=== PATIENT | male | born 2000 | race African-American/Black ===

== ENCOUNTER 2020-10-22 03:43 | Emergency (ER) | payer MEDICAID ==
[~2020-10-22] VITALS: Ht 175.3 cm; Wt 60.0 kg
[2020-10-22 05:00] LABS: BASOPHILS % 0.5 % (0.0-2.0); EOSINOPHILS % 0.1 % (0.0-5.0); HEMATOCRIT. 50.2 % (42.0-52.0); HEMOGLOBIN. 17.4 g/dL (14.0-18.0); LYMPHOCYTES % 24.2 % (20.0-50.0); MEAN CORPUSCULAR HEMOGLOBIN 33.6 pg (28.0-32.0); MEAN CORPUSCULAR VOLUME 97.1 fL (80.0-94.0); MEAN PLATELET VOLUME 9.2 fl (7.4-10.4); MONOCYTES % 13.2 % (2.0-8.0); PLATELET 386 x1000/uL (130-400); RED BLOOD CELL COUNT 5.17 mill/uL (4.7-6.1); RED CELL DISTRIBUTION WIDTH 13.2 % (11.6-14.6)
[2020-10-22 05:07] LABS: CHLORIDE 101 mEq/L (98-107)
[2020-10-22] MEDS ORDERED: SODIUM CHLORIDE 0.9% 1,000 ML IV ONE (05:30)
[2020-10-22] MEDS ORDERED: POTASSIUM CHLORIDE 20MEQ TABLET SR PO ONE (05:30)
[2020-10-22] MEDS ORDERED: KCL 20MEQ/100ML PREMIX 100 ML IV ONE (05:30)
[2020-10-22 05:36] LABS: CLARITY URINE CLEAR (CLEAR); COLOR URINE ORANGE (YELLOW); KETONES URINE 2+ (NEGATIVE); LEUKOCYTE ESTERASE URINE 1+ (NEGATIVE); NITRITE URINE NEGATIVE (NEGATIVE); OCCULT BLOOD URINE NEGATIVE (NEGATIVE); PROTEIN URINE 2+ (NEGATIVE); SPECIFIC GRAVITY URINE 1.036 (1.005-1.030)
[2020-10-22] MEDS ORDERED: ONDANSETRON HCL 4MG/2ML INJ IV ONE (05:45)
[2020-10-22 07:40] VITALS: BP 113/72
== END 2020-10-22 11:30 | disposition left against medical advice (07) ==
LOC: ER 03:43 → CANBEDREQ 11:15 → ER 11:30
DX: K59.00 Constipation, unspecified (principal); E87.6 Hypokalemia
CPT/HCPCS: 36415; 74018; 80053; 81003; 83690; 85025; 93005; 96365; 96366; 96375; 99285; J2405; J3480; J7030; Z7610; J7040

== ENCOUNTER 2021-01-02 13:53 | Emergency (ER) | payer SELFPAY ==
[~2021-01-02] VITALS: Ht 172.7 cm; Wt 75.0 kg
[2021-01-02] MEDS ORDERED: ONDANSETRON HCL 4MG/2ML INJ IV STA (15:38)
[2021-01-02] MEDS ORDERED: KETOROLAC 30MG/ML VIAL IV STA (15:38)
[2021-01-02] MEDS ORDERED: SODIUM CHLORIDE 0.9% 1,000 ML IV ONE (15:45)
[2021-01-02 15:52] LABS: CLARITY URINE CLEAR (CLEAR); COLOR URINE DARK YELLOW (YELLOW); KETONES URINE 4+ (NEGATIVE); LEUKOCYTE ESTERASE URINE TRACE (NEGATIVE); NITRITE URINE NEGATIVE (NEGATIVE); OCCULT BLOOD URINE NEGATIVE (NEGATIVE); PROTEIN URINE 3+ (NEGATIVE); SPECIFIC GRAVITY URINE 1.038 (1.005-1.030)
[2021-01-02 16:07] VITALS: BP 155/82
[2021-01-02 16:12] LABS: *AMPHETAMINES SCREEN URINE NEGATIVE (NEGATIVE); *BARBITURATES SCREEN URINE NEGATIVE (NEGATIVE); *BENZODIAZEPINES SCREEN URINE NEGATIVE (NEGATIVE); *COCAINE SCREEN URINE PRESUMTIVE POSITIVE (NEGATIVE); METHADONE URINE SCREEN NEGATIVE (NEGATIVE); OPIATES URINE SCREEN NEGATIVE (NEGATIVE)
[2021-01-02 16:13] LABS: CANNABINOID URINE SCREEN PRESUMTIVE POSITIVE (NEGATIVE); PHENCYCLIDINE URINE SCREEN NEGATIVE (NEGATIVE)
== END 2021-01-02 17:10 | disposition left against medical advice (07) ==
LOC: ER 14:16
DX: R10.9 Unspecified abdominal pain (principal)
CPT/HCPCS: 74176; 80305; 81003; 99284; J1885; J7030; Z7610; J2405

== ENCOUNTER 2021-03-01 12:07 | Emergency (ER) | payer MEDICAID ==
[~2021-03-01] VITALS: Ht 175.3 cm; Wt 77.0 kg
[2021-03-01 12:27] VITALS: BP 143/90
[2021-03-01] MEDS ORDERED: FAMOTIDINE 20MG/2ML VIAL IV STA (13:26)
[2021-03-01] MEDS ORDERED: ONDANSETRON HCL 4MG/2ML INJ IV STA (13:26)
[2021-03-01] MEDS ORDERED: SODIUM CHLORIDE 0.9% 1,000 ML IV ONE (13:30)
[2021-03-01] MEDS ORDERED: FAMO40TA7 MT (14:10)
[2021-03-01] MEDS ORDERED: ONDA4TAB11 PO (14:10)
[2021-03-01 14:27] LABS: BASOPHILS % 0.2 % (0.0-2.0); HEMATOCRIT. 47.9 % (42.0-52.0); HEMOGLOBIN. 16.5 g/dL (14.0-18.0); LYMPHOCYTES % 10.3 % (20.0-50.0); MEAN CORPUSCULAR VOLUME 98.6 fL (80.0-94.0); MEAN PLATELET VOLUME 9.3 fl (7.4-10.4); MONOCYTES % 12.7 % (2.0-8.0); NEUTROPHILS % 76.8 % (40.0-76.0); PLATELET 400 x1000/uL (130-400); RED BLOOD CELL COUNT 4.85 mill/uL (4.7-6.1); RED CELL DISTRIBUTION WIDTH 12.6 % (11.6-14.6)
[2021-03-01 14:31] LABS: CHLORIDE 103 mEq/L (98-107)
[2021-03-01 14:36] LABS: ETHANOL BLOOD < 10 mg/dL
[2021-03-01 14:42] LABS: INR 1.1; PROTHROMBIN TIME 11.5 sec (9.6-11.0)
[2021-03-02] MEDS ORDERED: ONDA4TAB5 MT (19:59)
== END 2021-03-01 16:46 | disposition left against medical advice (07) ==
LOC: ER 12:07
DX: R10.9 Unspecified abdominal pain (principal); Z98.890 Other specified postprocedural states
CPT/HCPCS: 36415; 71045; 80053; 80320; 83690; 85025; 85610; 93005; 96361; 96374; 96375; 99285; J2405; J3490; J7030; Z7610; G0480

== ENCOUNTER 2021-03-02 17:54 | Emergency (ER) | payer MEDICAID ==
[~2021-03-02] VITALS: Ht 167.6 cm; Wt 75.0 kg
[~2021-03-02 17:54] MED LIST: FAMO40TA7 MT; ONDA4TAB11 PO
[2021-03-02] MEDS ORDERED: PANTOPRAZOLE SODIUM 40 MG/VIAL IV STA (18:20)
[2021-03-02] MEDS ORDERED: ONDANSETRON HCL 4MG/2ML INJ IV STA (18:20)
[2021-03-02 19:02] LABS: BASOPHILS % 0.3 % (0.0-2.0); HEMATOCRIT. 49.9 % (42.0-52.0); HEMOGLOBIN. 17.2 g/dL (14.0-18.0); LYMPHOCYTES % 20.5 % (20.0-50.0); MEAN CORPUSCULAR VOLUME 98.5 fL (80.0-94.0); MEAN PLATELET VOLUME 9.1 fl (7.4-10.4); MONOCYTES % 10.4 % (2.0-8.0); NEUTROPHILS % 68.8 % (40.0-76.0); PLATELET 415 x1000/uL (130-400); RED BLOOD CELL COUNT 5.06 mill/uL (4.7-6.1); RED CELL DISTRIBUTION WIDTH 12.8 % (11.6-14.6)
[2021-03-02 19:06] LABS: CHLORIDE 102 mEq/L (98-107)
[2021-03-02] MEDS ORDERED: ONDA4TAB5 MT (19:59)
[2021-03-02 20:10] VITALS: BP 124/75
[2021-03-02] MEDS ORDERED: IOHEXOL-300 100 ML BOTTLE ONE (21:19)
== END 2021-03-02 20:15 | disposition home or self-care (01) ==
LOC: ER 17:54
DX: R11.2 Nausea with vomiting, unspecified (principal); N17.9 Acute kidney failure, unspecified; R10.9 Unspecified abdominal pain; J45.909 Unspecified asthma, uncomplicated; Z90.49 Acquired absence of other specified parts of digestive tract
CPT/HCPCS: 36415; 74177; 80053; 83690; 85025; 96374; 96375; 99285; C9113; J2405; Q9967

== ENCOUNTER 2022-01-04 22:28 | Emergency (ER) | payer SELFPAY ==
[~2022-01-04 22:28] MED LIST changes: +ONDA4TAB5 MT
== END 2022-01-04 23:20 | disposition left against medical advice (07) ==
LOC: ER 22:28
DX: Z53.21 Procedure and treatment not carried out due to patient leaving prior to being seen by health care provider (principal)